=== PATIENT | female | born 1995 | race Caucasian/White ===

== ENCOUNTER 2021-10-15 08:27 | Emergency (ER) | payer SELFPAY ==
[2021-10-15 09:18] LABS: BASOPHILS # (AUTO) 0.1 10^3/uL (0.0-0.1); BASOPHILS % (AUTO) 1.1 %; EOSINOPHILS # (AUTO) 0.3 10^3/uL (0.0-0.7); EOSINOPHILS % (AUTO) 5.4 %; HCT - HEMATOCRIT 39.2 % (37.0-47.0); HGB - HEMOGLOBIN 13.2 g/dL (12.0-16.0); LYMPHOCYTES # (AUTO) 1.8 10^3/uL (1.5-3.5); LYMPHOCYTES % (AUTO) 27.7 %; MEAN CORPUSCULAR HEMOGLOBIN 29.9 pg (27.0-31.0); MEAN CORPUSCULAR HGB CONC 33.7 g/dL (32.0-36.0); MEAN CORPUSCULAR VOLUME 88.9 fL (81.0-99.0); MEAN PLATELET VOLUME 9.7 fL (7.9-10.8); MONOCYTES # (AUTO) 0.4 10^3/uL (0.0-1.0); MONOCYTES % (AUTO) 5.5 %; NEUTROPHILS # (AUTO) 3.8 10^3/uL (1.5-6.6); PLT - PLATELET COUNT 263 10^3/uL (130-450); RED BLOOD COUNT 4.41 10^6/uL (4.20-5.40); RED CELL DISTRIBUTION WIDTH 12.1 % (12.0-15.0); WHITE BLOOD COUNT 6.3 x10^3/uL (4.8-10.8)
[2021-10-15 09:19] VITALS: BP 110/69
[2021-10-15 09:32] LABS: ALBUMIN 3.7 g/dL (3.2-5.5); BILIRUBIN,TOTAL 0.9 mg/dL (0.2-1.0); CALCIUM 9.3 mg/dL (8.5-10.3); CREATININE 0.8 mg/dL (0.4-1.0); POTASSIUM 3.7 mmol/L (3.5-5.0); TOTAL PROTEIN 7.4 g/dL (6.7-8.2)
--- NOTE | 2021-10-15 09:32 | ED Physician Documentation ---
PD HPI CHEST PAIN - Stated complaint Stated Complaint: CHEST PX - Chief complaint Chief Complaint: Cardiac - History obtained from History obtained from: Patient - History of Present Illness Timing - onset: Last night Timing - onset during: Rest Timing - duration: Hours (12) Timing - details: Gradual onset Pain level max: 2 Pain level now: 2 Quality: Pressure, Aching, Other (burning) Location: Substernal, Left chest Radiation: No: Jaw, Neck, Back, Abdominal, Left upper extremity, Right upper extremity Improved by: Nothing Worsened by: Other (nothing) Associated symptoms: No: Shortness of air, Diaphoresis, Nausea, Vomiting, Feeling faint / dizzy, General Weakness, Palpitations, Cough Recently seen: Not recently seen Review of Systems Ten Systems: 10 systems reviewed and negative Constitutional: denies: Fever, Chills Throat: denies: Sore throat Cardiac: denies: Palpitations, Calf pain Respiratory: denies: Dyspnea, Cough, Hemoptysis, Wheezing GI: denies: Abdominal Pain, Vomiting, Diarrhea, Hematemesis, Bloody / black stool : denies: Dysuria, Now EGA Musculoskeletal: denies: Neck pain, Back pain Neurologic: denies: Headache PD PAST MEDICAL HISTORY - Past Medical History Past Medical History: Yes Cardiovascular: None Respiratory: None Neuro: None Endocrine/Autoimmune: None GI: 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 HEENT: None Psych: None Musculoskeletal: None Derm: None - Past Surgical History Past Surgical History: No - Present Medications Home Medications: Ambulatory Orders Medication Instructions Recorded Confirmed Famotidine [Pepcid] 20 mg PO BID #60 tablet 10/15/21 Meloxicam [Mobic] 7.5 mg PO BID PRN #20 tablet 10/15/21 Sucralfate [Carafate] 1 gm PO ACHS #60 tablet 10/15/21 - Allergies Allergies/Adverse Reactions: Allergies Allergy/AdvReac Type Severity Reaction Status Date / Time No Known Drug Allergies Allergy Verified 10/15/21 08:37 - Social History Does the pt smoke?: No Smoking Status: Never smoker Does the pt drink ETOH?: No Does the pt have substance abuse?: No - Immunizations Immunizations are current?: Yes - POLST Patient has POLST: No PD ED PE NORMAL - Vitals Vital signs reviewed: Yes - General General: Alert and oriented X 3, No acute distress, Well developed/nourished - HEENT HEENT: Moist mucous membranes - Neck Neck: Supple, no meningeal sign - Cardiac Cardiac: RRR, Strong equal pulses - Respiratory Respiratory: No respiratory distress, Clear bilaterally - Abdomen Abdomen: Normal bowel sounds, Soft, Non tender, Non distended - Derm Derm: Warm and dry - Extremities Extremities: No edema, No calf tenderness / cord - Neuro Neuro: Alert and oriented X 3 - Psych Psych: Normal mood, Normal affect Results - Vitals Vitals: Vital Signs - 24 hr 10/15/21 10/15/21 08:32 09:18 Temperature 36.6 C 36.4 C L Heart Rate 90 84 Respiratory 15 12 Rate Blood Pressure 128/78 110/69 O2 Saturation 99 98 Oxygen O2 Source Room air - EKG (time done) 0907 Rate: Rate (enter#) (74) Rhythm: NSR [place]: Normal Intervals: Normal [place] QRS: Normal Ischemia: Other (flat t wave V2-3) - Labs Labs: Laboratory Tests 10/15/21 10/15/21 10/15/21 09:13 09:13 09:13 WBC 6.3 RBC 4.41 Hgb 13.2 Hct 39.2 MCV 88.9 MCH 29.9 MCHC 33.7 RDW 12.1 Plt Count 263 MPV 9.7 Neut # (Auto) 3.8 Lymph # (Auto) 1.8 [place] # (Auto) 0.4 Eos # (Auto) 0.3 Baso # (Auto) 0.1 Absolute Nucleated RBC 0.00 Nucleated RBC % 0.0 Sodium 137 Potassium 3.7 Chloride 104 Carbon Dioxide 24 Anion Gap 9.0 BUN 7 Creatinine 0.8 Estimated GFR (MDRD) 85 L Glucose 104 H Calcium 9.3 Total Bilirubin 0.9 AST 22 ALT 25 Alkaline Phosphatase 45 Troponin I High Sens < 2.3 L Total Protein 7.4 Albumin 3.7 Globulin 3.7 Albumin/Globulin Ratio 1.0 Lipase 29 - Rads (name of study) cxr Radiology: Final report received, EMP read contemporaneously, See rad report (no acute disease) PD MEDICAL DECISION MAKING - ED course Complexity details: reviewed results, re-evaluated patient, considered differential (No ST elevation [place], no aortic dissection, no PE, no tension pneumothorax, no aortic aneurysm), d/w patient ED course: 26-year-old female presents to the emergency department with left upper chest pain. Unclear etiology. Does have a history of reflux and states that this does feel similar. We will trial her on H2 blockers and Carafate for home. No evidence of PE. No calf swelling, no recent surgery, no travel, no hormonal therapy. No acute findings on x-ray or laboratory testing. We will have her follow-up with her doctor for further care. Patient counseled regarding signs and symptoms for which I believe and urgent re-evaluation would be necessary. Patient with good understanding of and agreement to plan and is comfortable going home at this time This document was made in part using voice recognition software. While efforts are made to proofread this document, sound alike and grammatical errors may occur. Departure - Departure Disposition: 01 Home, Self Care Clinical Impression: Chest pain Qualifiers: Chest pain type: unspecified Qualified Code(s): R07.9 - Chest pain, unspecified Condition: Good Instructions: ED Chest Pain NonCardiac Follow-Up: your,doctor in 1 week [Other] Prescriptions: Sucralfate [Carafate] 1 gm PO ACHS #60 tablet Meloxicam [Mobic] 7.5 mg PO BID PRN #20 tablet PRN Reason: Pain Famotidine [Pepcid] 20 mg PO BID #60 tablet Comments: Your prescriptions were sent to [facility] in [place]. Please follow-up with your doctor for further care. Please return if you worsen. Your testing does not show any acute abnormalities today.
--- NOTE | 2021-10-15 09:48 | XRAY Report ---
PROCEDURE: Chest 1 View X-Ray INDICATIONS: Chest Pain TECHNIQUE: One view of the chest was acquired. COMPARISON: None FINDINGS: Surgical changes and devices: None. Lungs and pleura: No pleural effusions or pneumothorax. Lungs are clear. Mediastinum: Mediastinal contours appear normal. Heart size is normal. Bones and chest wall: No suspicious bony lesions. Overlying soft tissues appear unremarkable. IMPRESSION: No acute process. Reviewed by: Percy Hare MD on 10/15/2021 8:47 AM [facility] Approved by: Percy Hare MD on 10/15/2021 8:47 AM [facility] Station ID: [id number]
[2021-10-15] MEDS ORDERED: MAG HYDROX/AL HYDROX/SIMETH 30 ML UDC PO STA (09:56)
[2021-10-15] MEDS ORDERED: MELOXICAM 7.5 MG TABLET PO STA (09:56)
[2021-10-15] MEDS ORDERED: SUCRALFATE 1 GM/10 ML UDC PO STA (09:56)
== END 2021-10-15 10:06 | disposition home or self-care (01) ==
LOC: ED 08:27
DX: R07.89 Other chest pain (principal); K21.9 Gastro-esophageal reflux disease without esophagitis
CPT/HCPCS: 36415; 80053; 83690; 84484; 85025; 93005; 99283; 99284

== ENCOUNTER 2021-11-17 03:44 | Emergency (ER) | payer SELFPAY ==
--- NOTE | 2021-11-17 04:23 | ED Physician Documentation ---
History of Present Illness - Stated complaint Stated Complaint: C+, CHEST/L ARM PRESSURE - Chief complaint Chief Complaint: General - History obtained from History obtained from: Patient - Additonal information Additional information: 26yF p/w covid-19 symtpoms since of core throat, nonproductive cough, mild subjective fever. she developed CP today that is nonpleuritic, worse with cough, L sided, radiating to the arm. denies dizziness, soa. nausea. Review of Systems Ten Systems: 10 systems reviewed and negative Constitutional: reports: Fever, Chills, Myalgias, Fatigue Throat: reports: Sore throat Cardiac: reports: Chest pain / pressure Respiratory: reports: Cough. 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 : None HEENT: None Psych: None Musculoskeletal: None Derm: None - Past Surgical History Past Surgical History: No - Present Medications Home Medications: Ambulatory Orders Medication Instructions Recorded Confirmed Famotidine [Pepcid] 20 mg PO BID #60 tablet 10/15/21 11/17/21 Meloxicam [Mobic] 7.5 mg PO BID PRN #20 tablet 10/15/21 Sucralfate [Carafate] 1 gm PO ACHS #60 tablet 10/15/21 - Allergies Allergies/Adverse Reactions: Allergies Allergy/AdvReac Type Severity Reaction Status Date / Time No Known Drug Allergies Allergy Verified 11/17/21 04:00 - Social History Does the pt smoke?: No Smoking Status: Never smoker Does the pt drink ETOH?: No Does the pt have substance abuse?: No - Immunizations Immunizations are current?: Yes - POLST Patient has POLST: No PD ED PE NORMAL - Vitals Vital signs reviewed: Yes - General General: Alert and oriented X 3, No acute distress, Well developed/nourished - HEENT HEENT: Atraumatic, PERRL, EOMI - Neck Neck: Supple, no meningeal sign - Cardiac Cardiac: RRR - Respiratory Respiratory: No respiratory distress, Clear bilaterally - Abdomen Abdomen: Non tender, Non distended - Derm Derm: Normal color, Warm and dry - Extremities Extremities: No deformity, No edema - Neuro Neuro: Alert and oriented X 3, No motor deficit, No sensory deficit - Psych Psych: Normal mood, Normal affect Results - Vitals Vitals: Vital Signs - 24 hr 11/17/21 04:00 Temperature 36.8 C Heart Rate 84 Respiratory 16 Rate Blood Pressure 107/77 O2 Saturation 99 Oxygen O2 Source Room air PD MEDICAL DECISION MAKING - ED course ED course: 26yF p/w viral URI sx, tested positive for covid on sunday. ekg, vitals, exam wnl. return precautions given. plan to f/u via telehealth. Departure - Departure Disposition: Home, Self Care Clinical Impression: COVID-19 Condition: Good Instructions: COVID-19 [facility], COVID-19 [facility] Statement Comments: You were seen in the ED for evaluation of chest pain. Your vital signs, EKG, and physical exam were normal. Please follow up with [facility] as needed and return to the emergency department if you have new or worsening symptoms or other concerns.
[2021-11-17 04:31] VITALS: BP 108/71
== END 2021-11-17 04:31 | disposition home or self-care (01) ==
LOC: ED 03:44
DX: U07.1 COVID-19 (principal)
CPT/HCPCS: 93005; 99282; 99283

== ENCOUNTER 2022-01-03 21:21 | Emergency (ER) | payer MEDICAID ==
--- NOTE | 2022-01-04 00:11 | XRAY Report ---
PROCEDURE: Chest 1 View X-Ray INDICATIONS: Chest Pain TECHNIQUE: One view of the chest was acquired. COMPARISON: 10/15/2021 FINDINGS: Surgical changes and devices: None. Lungs and pleura: No pleural effusions or pneumothorax. Lungs are clear. Mediastinum: Mediastinal contours appear normal. Heart size is normal. Bones and chest wall: No suspicious bony lesions. Overlying soft tissues appear unremarkable. IMPRESSION: No acute process. Reviewed by: Percy Head MD on 01/04/2022 12:11 AM [facility] Approved by: Percy Head MD on 01/04/2022 12:11 AM [facility] Station ID: [id number]
--- NOTE | 2022-01-04 00:58 | ED Physician Documentation ---
History of Present Illness - Stated complaint Stated Complaint: DIZZY/TREMBLING/NAUSEA - Chief complaint Chief Complaint: General - History obtained from History obtained from: Patient - History of Present Illness Timing: Today Pain level max: 2 Pain level now: 0 Improved by: no ameliorating factors Worsened by: no exacerbating factors - Additonal information Additional information: c/o episodic lightheadedness, fatigue, chest tightness with mild dyspnea. Sym ptoms started around 2 PM today with light activity, resolved by 5 PM but recurred 7 PM. Symptoms are nearly resolved by the time of this evaluation. Denies h/o similar symptoms. No recent notable car/plane travel. Review of Systems Constitutional: reports: Fatigue. denies: Fever, Chills, Sweats Cardiac: reports: Chest pain / pressure (tightness). denies: Palpitations, Pedal edema, Calf pain Respiratory: reports: Dyspnea (mild). 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 HEENT: None Psych: None Musculoskeletal: None Derm: None - Past Surgical History Past Surgical History: No - Present Medications Home Medications: Ambulatory Orders Medication Instructions Recorded Confirmed Famotidine [Pepcid] 20 mg PO BID #60 tablet 10/15/21 11/17/21 Meloxicam [Mobic] 7.5 mg PO BID PRN #20 tablet 10/15/21 Sucralfate [Carafate] 1 gm PO ACHS #60 tablet 10/15/21 - Allergies Allergies/Adverse Reactions: Allergies Allergy/AdvReac Type Severity Reaction Status Date / Time No Known Drug Allergies Allergy Verified 01/03/22 21:37 - Social History Does the pt smoke?: No Smoking Status: Never smoker Does the pt drink ETOH?: No Does the pt have substance abuse?: No - Immunizations Immunizations are current?: Yes - POLST Patient has POLST: No PD ED PE NORMAL - Vitals Vital signs reviewed: Yes - General General: Alert and oriented X 3, No acute distress, Well developed/nourished - Neck Neck: Supple, no meningeal sign - Cardiac Cardiac: RRR, No murmur, No gallop, No rub - Respiratory Respiratory: No respiratory distress, Clear bilaterally - Abdomen Abdomen: Soft, Non tender - Back Back: No CVA TTP - Extremities Extremities: No edema Results - Vitals Vitals: Oxygen O2 Source Room air - EKG (time done) No standard instances Rate: Rate (enter#) (92) Rhythm: NSR [place]: Normal Intervals: Normal [place] QRS: Normal Ischemia: Normal ST segments - Labs Labs: Laboratory Tests 01/03/22 01/03/22 01/03/22 01:01 01:01 01:01 WBC 10.4 RBC 4.19 L Hgb 12.7 Hct 37.1 MCV 88.5 MCH 30.3 MCHC 34.2 RDW 12.2 Plt Count 262 MPV 9.7 Neut # (Auto) 6.1 Lymph # (Auto) 3.2 [place] # (Auto) 0.8 Eos # (Auto) 0.3 Baso # (Auto) 0.1 Absolute Nucleated RBC 0.00 Nucleated RBC % 0.0 Sodium 135 Potassium 3.7 Chloride 100 L Carbon Dioxide 26 Anion Gap 9.0 BUN 10 Creatinine 0.8 Estimated GFR (MDRD) 85 L Glucose 90 Calcium 9.4 Total Bilirubin 0.9 AST 14 ALT 17 Alkaline Phosphatase 48 Troponin I High Sens 3.2 Total Protein 6.7 Albumin 3.6 Globulin 3.1 Albumin/Globulin Ratio 1.2 Lipase 35 - Rads (name of study) chest xray Radiology: Prelim report reviewed, See rad report PD MEDICAL DECISION MAKING - ED course Complexity details: reviewed results, re-evaluated patient, considered differential, d/w patient ED course: NAD, c/o episodic lightheadedness with fatigue and chest tightness. She has normal EKG and chest xray, as well as unremarkable blood tests including hs-cTn. Her initial vital signs include mild tachycardia (107), but subsequent vital signs are normal including normal heart rate and thus she is PERC negative. Etiology of symptoms not apparent at this time. No apparent cardiac risk factors; safe for d/c at this time, instructed to follow up with primary care provider, return precautions discussed. Departure - Departure Disposition: Home, Self Care Clinical Impression: Chest pain Qualifiers: Chest pain type: unspecified Qualified Code(s): R07.9 - Chest pain, unspecified Condition: Good Instructions: ED Chest Pain Atypical Unkn Cause Comments: Your test results tonight are unremarkable; this includes EKG, chest xray, and blood tests (including a cardiac enzyme test). This is reassuring, but it also means that the cause of your symptoms is not apparent at this time. You should follow up with your primary care provider if your symptoms do not resolve. Return to the ER if your symptoms worsen Discharge Date/Time: 01/04/22 02:44
[2022-01-04 01:06] LABS: BASOPHILS # (AUTO) 0.1 10^3/uL (0.0-0.1); BASOPHILS % (AUTO) 0.7 %; EOSINOPHILS # (AUTO) 0.3 10^3/uL (0.0-0.7); EOSINOPHILS % (AUTO) 2.9 %; HCT - HEMATOCRIT 37.1 % (37.0-47.0); HGB - HEMOGLOBIN 12.7 g/dL (12.0-16.0); LYMPHOCYTES # (AUTO) 3.2 10^3/uL (1.5-3.5); LYMPHOCYTES % (AUTO) 30.2 %; MEAN CORPUSCULAR HEMOGLOBIN 30.3 pg (27.0-31.0); MEAN CORPUSCULAR HGB CONC 34.2 g/dL (32.0-36.0); MEAN CORPUSCULAR VOLUME 88.5 fL (81.0-99.0); MEAN PLATELET VOLUME 9.7 fL (7.9-10.8); MONOCYTES # (AUTO) 0.8 10^3/uL (0.0-1.0); NEUTROPHILS # (AUTO) 6.1 10^3/uL (1.5-6.6); NEUTROPHILS % (AUTO) 57.9 %; PLT - PLATELET COUNT 262 10^3/uL (130-450); RED BLOOD COUNT 4.19 10^6/uL (4.20-5.40); RED CELL DISTRIBUTION WIDTH 12.2 % (12.0-15.0); WHITE BLOOD COUNT 10.4 x10^3/uL (4.8-10.8)
[2022-01-04 01:21] LABS: ALBUMIN 3.6 g/dL (3.2-5.5); ALBUMIN/GLOBULIN RATIO 1.2 (1.0-2.2); BILIRUBIN,TOTAL 0.9 mg/dL (0.2-1.0); CALCIUM 9.4 mg/dL (8.5-10.3); CREATININE 0.8 mg/dL (0.4-1.0); POTASSIUM 3.7 mmol/L (3.5-5.0); TOTAL PROTEIN 6.7 g/dL (6.7-8.2)
[2022-01-04 02:45] VITALS: BP 104/72
== END 2022-01-04 02:44 | disposition home or self-care (01) ==
LOC: ED 21:21
DX: R07.9 Chest pain, unspecified (principal)
CPT/HCPCS: 36415; 80053; 83690; 84484; 85025; 93005; 99283; 99284

== ENCOUNTER 2023-05-18 12:13 | Emergency (ER) | payer MEDICAID ==
[2023-05-18 12:43] VITALS: BP 120/85
--- NOTE | 2023-05-18 12:47 | ED Physician Documentation ---
History of Present Illness - Stated complaint Stated Complaint: L THUMB LAC - Chief complaint Chief Complaint: Laceration - Additonal information Additional information: 27-year-old female presents emergency department for evaluation of left thumb laceration sustained when using a straight blade to scrape stickers. Razor blade slipped cutting her left thumb. Uncertain of last tetanus. 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: None Psych: None Musculoskeletal: None Derm: None - Past Surgical History Past Surgical History: No - Present Medications Home Medications: Ambulatory Orders Medication Instructions Recorded Confirmed No Known Home Medications 05/18/23 05/18/23 - Allergies Allergies/Adverse Reactions: Allergies Allergy/AdvReac Type Severity Reaction Status Date / Time No Known Drug Allergies Allergy Verified 05/18/23 12:38 - Social History Does the pt smoke?: No Smoking Status: Never smoker Does the pt drink ETOH?: No Does the pt have substance abuse?: No - Immunizations Immunizations are current?: Yes - POLST Patient has POLST: No PD ED PE EXPANDED - Extremities Extremities: Right finger(s) (Right thumb with 4 cm laceration radial side between MCP and PIP joint. Normal flexion extension distally. Normal tendons. Neurovascular intact.) Results - Vitals Vitals: Vital Signs - 24 hr 05/18/23 12:35 Temperature 36.4 C L Heart Rate 84 Respiratory 16 Rate Blood Pressure 120/85 H O2 Saturation 100 Oxygen O2 Source Room air Procedures - Laceration (location) left thumb Length in cm: 3.5 Wound type: Linear, Into muscle, Clean Neurovascular status: Sensory intact, Motor intact Tendon involvement: Tendon intact Anesthesia: Lidocaine 1% Wound preparation: Chlorhexadine, Irrigated copiously NS Skin layer closure: Nylon, Interrupted, Sutures - enter # (8) Other: Patient tolerated well, No complications, Tetanus booster given PD Medical Decision Making - ED course Complexity details: re-evaluated patient, d/w patient ED course: 27-year-old female here with a left thumb laceration sustained when using a straight blade. Tetanus was updated today. 3 and half centimeter laceration easily closed with 8 interrupted sutures. No evidence of tendon injury otherwise neurovascularly intact. Routine wound care and emergent return precautions discussed. Departure - Departure Disposition: Home, Self Care Clinical Impression: Laceration of left thumb Qualifiers: Encounter type: initial encounter Damage to nail status: without damage Foreign body presence: without foreign body Qualified Code(s): S61.012A - Laceration without foreign body of left thumb without damage to nail, initial encounter Condition: Stable Record reviewed to determine appropriate education?: Yes Instructions: ED Laceration Hand Comments: Your suture(s) should be removed in 7 to 10 days. In 24 hours you may remove the dressing wash gently with warm soap and water, apply any antibiotic ointment and a simple bandage. Your tetanus is up-to-date. Please attempt to keep your wound clean and dry. Do not submerge it in dirty dishwater or bath water. I encourage you to wear the foam splint over the next week or so to remind you not to bend the thumb so that it may heal as we anticipate. Return to the emergency department if you have any concerns of infection such as redness, fevers milky drainage increased pain.
[2023-05-18] MEDS ORDERED: lidocaine 1% 20 ML MDV SUBQ ONE (12:49)
[2023-05-18] MEDS ORDERED: TETANUS/DIPHTHERIA/PERTUSSIS 0.5 ML SYRINGE IM ONE (12:49)
[2023-05-18] MEDS ORDERED: BACITRACIN ZINC OINT 1 PACKET TOP STA (13:29)
== END 2023-05-18 13:44 | disposition home or self-care (01) ==
LOC: ED 12:13
DX: S61.012A Laceration without foreign body of left thumb without damage to nail, initial encounter (principal); W27.8XXA Contact with other nonpowered hand tool, initial encounter; Y93.89 Activity, other specified
CPT/HCPCS: 12002; 90471; 90715; 99283; A9270

== ENCOUNTER 2024-05-31 20:31 | Emergency (ER) | payer MEDICAID ==
--- NOTE | 2024-05-31 21:07 | ED Physician Documentation ---
PD HPI HEENT - Stated complaint Stated Complaint: SOA - Chief complaint Chief Complaint: Resp - History obtained from History obtained from: Patient - History of Present Illness Timing - onset: How many weeks ago (1) Timing - duration: Weeks (1) Timing - details: Gradual onset, Still present Location: Throat Improves: Medication Worsens: Swalllowing Associated symptoms: Fever, Congestion, Cough Similar symptoms before: Has not had sx before Recently seen: Not recently seen - Additional information Additional information: 28-year-old Luis Hernandez has developed some shortness of breath over the past week that she describes as having a sensation that periodically she is unable to get any her to come into her airway. She has not had this previously but she does have a history of recurrent sore throat that self resolves. She has mild pain to her throat and she has a history of tonsillitis. Review of Systems Constitutional: denies: Fever Ears: denies: Ear pain Nose: denies: Congestion Throat: reports: Sore throat Cardiac: denies: Chest pain / pressure, Palpitations Respiratory: reports: Dyspnea. 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: No Does the pt have substance abuse?: No - Immunizations Immunizations are current?: Yes - POLST Patient has POLST: No PD ED PE NORMAL - Vitals Vital signs reviewed: Yes (hyhpertensive ) - General General: Alert and oriented X 3, No acute distress, Well developed/nourished - HEENT HEENT: Atraumatic, PERRL, EOMI, Ears normal, Moist mucous membranes, Other (The tonsils are 2+ cryptic and exudative. The posterior airway is crowded. The patient has difficulty opening her mouth fully. 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, No motor deficit, No sensory deficit, Normal speech Eye Opening: Spontaneous Motor: Obeys Commands Verbal: Oriented GCS Score: 15 - Psych Psych: Normal mood, Normal affect Results - Vitals Vitals: Vital Signs - 24 hr 05/31/24 05/31/24 20:34 21:36 Temperature 36.8 C 36.5 C Heart Rate 88 89 Respiratory 16 20 Rate Blood Pressure 156/89 H 122/96 H O2 Saturation 98 99 Oxygen O2 Source Nasal cannula - Labs Labs: Laboratory Tests 05/31/24 20:50 Group A Strep Rapid Negative PD Medical Decision Making - ED course Complexity details: considered differential, d/w patient Reviewed Lab Results: A rapid strep is negative ED course: 28-year-old female presents to the emergency department with tonsillitis with exudative cryptic tonsils and a crowded airway. She is treated with dexamethasone and Augmentin and requires liquid medications on a usual basis. Departure - Departure Disposition: 01 Home, Self Care Clinical Impression: Tonsillitis Condition: Stable Instructions: ED Tonsillitis Follow-Up: Justus Aguilar MD [Physician No Access] - Prescriptions: Amoxicillin/Potassium Clav [Amox-Clav 400-57 mg/5 ml Susp] 800 mg PO BID #100 ml Comments: Luis, today it looks like you have tonsillitis. Your tonsils are enlarged and cryptic with an exudate. This usually indicates some swelling and we have given you some dexamethasone to help with this swelling and we have placed on a short course of antibiotic as this will generally help as well. Recurrent tonsillitis in a younger person is frequently a result of excessive stress and inadequate sleep. Your symptoms should resolve rapidly. I have E scribed a short course of liquid Augmentin to the [facility] in [place]. Forms: PCP List Discharge Date/Time: 05/31/24 21:37
[2024-05-31] MEDS: AMOX/CLAV 400 MG/57 MG/5 ML SYRINGE PO STA (21:14)
[2024-05-31] MEDS: DEXAMETHASONE 10 MG/ML VIAL PO STA (21:14)
[2024-05-31] MEDS: CHERRY SYRUP 10 ML UDC PO ONE (21:14)
[2024-05-31 21:21] LABS: RAPID STREP SCREEN Negative (Negative)
[2024-05-31 21:50] VITALS: BP 122/96; O2SAT 99
== END 2024-05-31 21:37 | disposition home or self-care (01) ==
LOC: ED 20:31
DX: J03.90 Acute tonsillitis, unspecified (principal)
CPT/HCPCS: 87070; 87430; 99283; A9270

== ENCOUNTER 2024-06-05 23:07 | Emergency (ER) | payer SELFPAY ==
[2024-06-05 23:21] VITALS: O2SAT 100
--- NOTE | 2024-06-06 00:56 | ED Physician Documentation ---
History of Present Illness - Stated complaint Stated Complaint: SOA - Chief complaint Chief Complaint: Resp - History obtained from History obtained from: Patient - Additonal information Additional information: The patient comes to the emergency department chief complaint of an episode of feeling like her throat was tight. The patient states that she was seen nearly 6 days ago for sore throat and was prescribed antibiotics for tonsillitis. The patient states that she was too busy and was unable to miner pick her antibiotics so she has not taken any doses since being seen in the ED. She states that she really did not have any discomfort in her throat after the first day until today. She denies any fevers or congestion. No cough. She does have a history of GERD. The patient states that she had a little bit of throat discomfort when she woke up this morning, but it was not too bad. This evening, she was leaning back in the chair when she felt as though her throat was full and it made her feel as though she could not breathe. She did not notice any actual swelling at that time. She states that the feeling ultimately passed on its own but she decided to come back and get checked out. She is not currently having any symptoms. The patient denies any cough. No air hunger. No other complaints at this time. PD PAST MEDICAL HISTORY - Past Medical History Past Medical History: Yes Cardiovascular: None Respiratory: None Neuro: None Endocrine/Autoimmune: None GI: GERD [employer]ER: None : None HEENT: None Psych: None Musculoskeletal: None Derm: None - Past Surgical History Past Surgical History: No - Present Medications Home Medications: Ambulatory Orders Medication Instructions Recorded Confirmed Amoxicillin/Potassium Clav 800 mg PO BID #100 ml 05/31/24 [Amox-Clav 400-57 mg/5 ml Susp] Omeprazole 20 mg PO DAILY 05/31/24 06/06/24 - Allergies Allergies/Adverse Reactions: Allergies Allergy/AdvReac Type Severity Reaction Status Date / Time No Known Drug Allergies Allergy Verified 06/05/24 23:10 - Social History Does the pt smoke?: No Smoking Status: Never smoker Does the pt drink ETOH?: No Does the pt have substance abuse?: No - Immunizations Immunizations are current?: Yes - POLST Patient has POLST: No PD ED PE NORMAL - Vitals Vital signs reviewed: Yes - General General: Alert and oriented X 3, No acute distress, Well developed/nourished - HEENT HEENT: Atraumatic, EOMI, Moist mucous membranes, Pharynx benign (2+ tonsils, no exudates, normal color. Symmetrical posterior pharynx. No edema of oropharyngeal structures. No tongue elevation.) - Neck Neck: Supple, no meningeal sign, Other (Moderate anterior cervical lymphadenopathy.) - Cardiac Cardiac: RRR, No murmur, Strong equal pulses - Respiratory Respiratory: No respiratory distress, Clear bilaterally - Abdomen Abdomen: Soft, Non tender, Non distended - Derm Derm: Normal color, Warm and dry, No rash - Extremities Extremities: No deformity - Neuro Neuro: Alert and oriented X 3 - Psych Psych: Normal mood, Normal affect Results - Vitals Vitals: Vital Signs - 24 hr 06/05/24 06/06/24 23:11 01:00 Temperature 36.5 C 36.8 C Heart Rate 88 95 Respiratory 16 16 Rate Blood Pressure 150/90 H 131/90 H O2 Saturation 100 100 Oxygen O2 Source Room air PD Medical Decision Making - ED course Complexity details: considered differential, d/w patient ED course: I discussed with the patient that her pharyngeal exam is normal now. She has some anterior cervical lymphadenopathy that is symmetrical and this may be part of the globus sensation she had earlier. She does not have any stridor and is able to speak and breathe comfortably. She is handling her secretions well. At this point in time, I do not feel any further workup is indicated. Also, given that she was prescribed antibiotics nearly 6 days ago and still does not pick them up and now has a normal throat exam, I do not feel that there is likely to be any benefit in starting the antibiotics now. We have discussed symptomatic management at home as well as usual indications for return. Departure - Departure Disposition: 01 Home, Self Care Clinical Impression: Globus pharyngeus, Anterior cervical lymphadenopathy Condition: Stable Instructions: ED Cervical Adenitis No Abx Tx Comments: Examination of your throat, lungs, heart, and upper airway are normal. Additionally, you are speaking and breathing normally and her not exhibiting any signs of respiratory distress. You are also not drooling. There is no evidence of lingering infection, despite not having been able to miner pick your antibiotics. As such, there is no evidence of an emergent condition at this time. Sometimes enlarged lymph nodes can give a sense of throat tightness and you do have a little bit of enlargement of the lymph nodes in the uppermost part of the front of your neck. This is not unusual, especially following an illness that causes a sore throat. These will most likely shrink down to normal size in the coming days. Sometimes reflux of stomach contents into your throat when you are sleeping can cause some ongoing irritation which can also give you a sense of throat tightness, known as "globus sensation". If you feel like you are having significant gastroesophageal reflux, you should follow-up with your doctor to talk about getting a scope to get a better look at things. Forms: PCP List Discharge Date/Time: 06/06/24 01:00
[2024-06-06 01:10] VITALS: BP 131/90
== END 2024-06-06 01:00 | disposition home or self-care (01) ==
LOC: ED 23:07
DX: F45.8 Other somatoform disorders (principal); R59.0 Localized enlarged lymph nodes; K21.9 Gastro-esophageal reflux disease without esophagitis; Z79.899 Other long term (current) drug therapy
CPT/HCPCS: 99281; 99283